=== PATIENT | female | born 2000 | race Caucasian/White ===

== ENCOUNTER 2021-08-22 16:11 | Emergency (ER) | payer BC, OTHER ==
[~2021-08-22] VITALS: Ht 162.6 cm; Wt 59.0 kg
[2021-08-22 19:19] LABS: BASOPHILS % 0.4 % (0.0-2.0); EOSINOPHILS % 0.6 % (0.0-5.0); HEMOGLOBIN. 13.1 g/dL (12.0-16.0); LYMPHOCYTES % 23.3 % (20.0-50.0); MEAN CORPUSCULAR HEMOGLOBIN 26.6 pg (28.0-32.0); MEAN CORPUSCULAR VOLUME 81.1 fL (81.0-99.0); MEAN PLATELET VOLUME 8.1 fl (7.4-10.4); NEUTROPHILS % 71.7 % (40.0-76.0); PLATELET 337 x1000/uL (130-400); RED BLOOD CELL COUNT 4.93 mill/uL (4.2-5.4); RED CELL DISTRIBUTION WIDTH 14.8 % (11.6-14.6)
[2021-08-22 19:26] LABS: CHLORIDE 105 mEq/L (98-107)
[2021-08-22 20:27] VITALS: BP 117/79
== END 2021-08-22 20:28 | disposition home or self-care (01) ==
LOC: ER 16:11
DX: R55 Syncope and collapse (principal)
CPT/HCPCS: 36415; 70450; 71045; 73080; 80053; 81025; 84484; 85025; 93005; 99285; Z7610